=== PATIENT | female | born 1985 | race Caucasian/White ===

== ENCOUNTER 2021-02-07 09:00 | Outpatient (CLI) | payer OTHER | END 2021-02-07 09:30 | disposition home or self-care (01) | LOC: PPH VACUNA 09:00 | PROVIDERS: ATTEND Emergency Medicine Pediatric Emergency Medicine | DX: Z23 Encounter for immunization (principal) ==

== ENCOUNTER 2022-04-29 | Outpatient (CLI) | payer OTHER | END 2022-04-29 00:15 | disposition home or self-care (01) | LOC: PPH VACUNA | PROVIDERS: ATTEND Emergency Medicine Pediatric Emergency Medicine | DX: Z23 Encounter for immunization (principal) ==

== ENCOUNTER → 2022-04-30 12:26 | Outpatient (CLI) | payer OTHER | END | disposition home or self-care (01) | LOC: LAB 12:26 | PROVIDERS: ATTEND General Practice | DX: Z11.3 Encounter for screening for infections with a predominantly sexual mode of transmission (principal); R05.9 Cough, unspecified ==

== ENCOUNTER 2022-09-06 09:21 | Outpatient (CLI) | payer OTHER | END 2022-09-06 09:24 | disposition home or self-care (01) | LOC: LAB 09:21 | PROVIDERS: ATTEND General Practice | DX: Z11.3 Encounter for screening for infections with a predominantly sexual mode of transmission (principal) ==

== ENCOUNTER 2022-10-11 00:55 | Emergency (ER) | payer OTHER ==
[~2022-10-11] VITALS: Ht 149.9 cm; Wt 43.5 kg
[2022-10-11] MEDS ORDERED: ONDANSETRON ODT4 MG PO ×2 (08:18→08:19)
[2022-10-11] MEDS ORDERED: LEVSIN/SL0.125 MG SL ×3 (08:18→08:19)
== END 2022-10-11 08:28 | disposition home or self-care (01) ==
LOC: ER 00:55
DX: R10.9 Unspecified abdominal pain (principal); R19.7 Diarrhea, unspecified; R11.10 Vomiting, unspecified; K59.00 Constipation, unspecified; D25.9 Leiomyoma of uterus, unspecified

== ENCOUNTER → 2024-01-02 10:45 | Outpatient (CLI) | payer OTHER ==
[~2024-01-02 10:45] MED LIST: LEVSIN/SL0.125 MG SL; ONDANSETRON ODT4 MG PO
== END | disposition home or self-care (01) ==
LOC: NUCLEAR 10:45
DX: I87.303 Chronic venous hypertension (idiopathic) without complications of bilateral lower extremity (principal); I87.8 Other specified disorders of veins; I78.1 Nevus, non-neoplastic